=== PATIENT | male | born 1985 | race Caucasian/White ===

== ENCOUNTER 2023-09-19 21:20 | Emergency (ER) | payer BC, OTHER ==
[2023-09-19] MEDS ORDERED: Bupivacaine 0.5% 10 ML SDV INJECT ONE (23:23)
[2023-09-19] MEDS ORDERED: Sodium Chloride 0.9% 10 ML Syringe FLUSH PRN (23:39)
[2023-09-19] MEDS ORDERED: ceFAZolin 1 GM in Sodium Chloride 0.9% 50 ML IV ONE (23:39)
[2023-09-19] MEDS ORDERED: Lidocaine 2% with EPINEPHrine 1:200,000 20 ML SDV INJECT ONE (23:41)
[2023-09-20 01:05] LABS: AMPHETAMINES SCREEN, URINE NEGATIVE (CUTOFF=500); BARBITURATE SCREEN,URINE NEGATIVE (CUTOFF=200); BENZODIAZEPINES SCREEN,URINE NEGATIVE (CUTOFF=150); BUPRENORPHINE SCREEN,URINE NEGATIVE (CUTOFF=10); METHADONE SCREEN, URINE NEGATIVE (CUT0FF=200); METHAMPHETAMINES SCREEN, URINE NEGATIVE (CUTOFF=500); OXYCODONE SCREEN,URINE NEGATIVE (CUT0FF=100); THC SCREEN,URINE 20 NG/ML NEGATIVE (CUTOFF=50)
[2023-09-20] MEDS ORDERED: Thrombin (Bovine) 5,000 Unit Kit ONE (01:11)
[2023-09-20] MEDS ORDERED: Thrombin (Bovine) 5,000 Unit Kit INJECT SCH (01:15)
== END 2023-09-20 01:59 | disposition home or self-care (01) ==
LOC: JD.ED 21:20
DX: S62.521B Displaced fracture of distal phalanx of right thumb, initial encounter for open fracture (principal); S61.101A Unspecified open wound of right thumb with damage to nail, initial encounter; W23.0XXA Caught, crushed, jammed, or pinched between moving objects, initial encounter
CPT/HCPCS: 11730; 36415; 73130; 80306; 80307; 96365; 99283; J0665; J0690; J3490